=== PATIENT | female | born 1980 | race Caucasian/White ===

== ENCOUNTER 2019-04-10 11:42 | Emergency (ER) | payer MEDICAID, OTHER ==
[~2019-04-10] VITALS: Ht 160 cm; Wt 53.1 kg
[2019-04-10 12:00] VITALS: BP_SYST 99
--- NOTE | 2019-04-10 12:20 | NUR ---
Patient to ER bed 8 to gown for evaluation. Side rails up. Report given to EDENILSON KELLEY .
--- NOTE | 2019-04-10 12:34 | NUR ---
ER at bedside examining patient.
[2019-04-10] MEDS ORDERED: KETOROLAC TROMETHAMINE 30 MG VIAL IVP ONE (12:45)
[2019-04-10] MEDS ORDERED: DIPHENHYDRAMINE INJ 50 MG/ML VIAL IVP ONE (12:45)
[2019-04-10] MEDS ORDERED: fentaNYL CITRATE/PF 100 MCG/2 ML AMP IVP ONE (12:45)
--- NOTE | 2019-04-10 13:43 | NUR ---
Negative Preganancy test noted.
[2019-04-10 14:11] VITALS: BP_SYST 99
--- NOTE | 2019-04-10 14:14 | NUR ---
pt is being dc home. RN ran Dipstick UA per MD order. negative.
--- NOTE | 2019-04-10 14:14 | NUR ---
Patient given written and verbal discharge instructions and verbalizes understanding. ER MD discussed with patient the results and treatment provided. Patient in stable condition. ID arm band removed. IV catheter removed intact and dressing applied, no active bleeding. given. Patient educated on pain management and to follow up with PMD. Pain Scale . Opportunity for questions provided and answered. Medication side effect fact sheet provided.
== END 2019-04-10 14:12 | disposition home or self-care (01) ==
LOC: SED 11:42
DX: M54.5 Low back pain (principal)
CPT/HCPCS: 74018; 81025; 96374; 96375; 99283; J1200; J1885; J3010